=== PATIENT | male | born 1980 | race Caucasian/White ===

== ENCOUNTER 2017-11-21 08:33 | Emergency (ER) | payer BC ==
[~2017-11-21] VITALS: Ht 177.8 cm; Wt 103.2 kg
[2017-11-21 09:43] LABS: HEMATOCRIT 37.3 % (38.0-50.0); HEMOGLOBIN 13.1 G/DL (12.5-16.6); MCH 29.4 PG (29.0-34.0); MCHC 35.1 G/DL (30.0-36.0); MCV 83.6 FL (86-99); PLATELET COUNT 311 K/uL (156-360); RBC DIS.WIDTH-CV 12.2 % (11.8-14.6); RBC DIS.WIDTH-SD 37.2 % (39-53); RED BLOOD COUNT 4.46 M/uL (4.00-5.50); WHITE BLOOD COUNT 15.4 K/uL (4.1-10.2)
[2017-11-21 09:54] LABS: CHLORIDE 108 mEq/L (99-109); POTASSIUM 4.3 mEq/L (3.7-5.4); SODIUM 137 mEq/L (136-147)
[2017-11-21 09:55] LABS: ALBUMIN 4.4 g/dL (3.2-4.8); MAGNESIUM 2.8 mg/dL (1.3-2.7)
[2017-11-21 09:57] LABS: GLUCOSE 103 mg/dL (70-99); TOTAL PROTEIN 7.2 g/dL (6.4-8.3)
[2017-11-21 09:59] LABS: TOTAL BILIRUBIN 0.2 mg/dL (0.0-1.0)
[2017-11-21 10:00] LABS: SERUM ETHYL ALCOHOL < 10 mg/dL
[2017-11-21 10:01] LABS: ALKALINE PHOSPHATASE 63 IU/L (3-129); CREATININE 1.1 mg/dL (0.6-1.3); GFR ESTIMATE (CALCULATED) > 59 mL/min/ (58.99-99999)
[2017-11-21 10:02] LABS: AST (GOT) 23 IU/L (2-34); UREA NITROGEN (BUN) 15 mg/dL (9-23)
[2017-11-21 10:04] LABS: ALT (GPT) 35 IU/L (3-49)
[2017-11-21 10:05] LABS: TROP-I INTERPRETATION NEGATIVE; TROPONIN-I < 0.01 ng/mL (0.0-0.30)
[2017-11-21 11:47] VITALS: BP 125/64
== END 2017-11-21 11:51 | disposition home or self-care (01) ==
LOC: EME 08:33
PROVIDERS: Emergency Medicine
DX: R56.9 Unspecified convulsions (principal)
CPT/HCPCS: 70450; 80053; 83605; 83735; 84484; 85027; 93005; G0480; J7030